=== PATIENT | female | born 1965 | race Caucasian/White ===

== ENCOUNTER 2017-07-15 17:04 | Emergency (ER) | payer MEDICAID, OTHER ==
[~2017-07-15] VITALS: Ht 147.3 cm; Wt 85.9 kg
[2017-07-15] MEDS ORDERED: FENO54TA2 PO (17:15)
[2017-07-15] MEDS ORDERED: RANI150T PO (17:15)
[2017-07-15] MEDS ORDERED: ATOR1TAB21 PO (17:15)
[2017-07-15] MEDS ORDERED: PYRI1TAB5 PO (19:30)
[2017-07-15] MEDS ORDERED: MACR100C43 PO (19:30)
[2017-07-15 19:32] VITALS: BP 139/73
== END 2017-07-15 19:55 | disposition home or self-care (01) ==
LOC: M ED 17:04
DX: N39.0 Urinary tract infection, site not specified (principal); R31.9 Hematuria, unspecified; E78.00 Pure hypercholesterolemia, unspecified; Z85.42 Personal history of malignant neoplasm of other parts of uterus; Z90.79 Acquired absence of other genital organ(s); Z79.899 Other long term (current) drug therapy

== ENCOUNTER → 2017-08-06 | Outpatient (CLI) | payer OTHER ==
[~2017-08-06] MED LIST: ATOR1TAB21 PO; FENO54TA2 PO; MACR100C43 PO; PYRI1TAB5 PO; RANI150T PO
--- NOTE | 2017-08-06 15:45 | REP ---
Duplex extremity venous ultrasound: Left lower extremity jeb History: Head left lower leg edema. Findings: The deep veins are anechoic and fully compressible from the groin to the popliteal fossa in the left lower extremity. Color flow imaging is homogeneous. Spectral Doppler interrogation demonstrates intact respiratory variation in flow and normal manual augmentation of flow. There is no evidence of deep vein thrombosis. Impression: Negative left lower extremity duplex venous ultrasound. No evidence of deep vein thrombosis. Signed by Bebeto Talley MD 08/06/2017 03:37 P
== END ==
LOC: M RAD 15:10
PROVIDERS: ATTEND Family Medicine
DX: R60.0 Localized edema (principal)